=== PATIENT | female | born 1960 | race Caucasian/White ===

== ENCOUNTER 2016-06-10 10:08 | Outpatient (CLI) | payer OTHER ==
[2016-06-10 11:05] LABS: #Basophils 0.1 thou/uL (0.0-0.2); #Eosinphils 0.1 thou/uL (0.0-0.7); #Lymphocytes 2.3 thou/uL (1.20-3.40); #Monocytes 0.5 thou/uL (0.11-0.59); #Neutrophils 3.9 thou/uL (1.40-6.50); %Eosinophils 1.3 % (0.0-10.0); %Monocytes 7.5 % (0.0-10.0); Hematocrit 45.8 % (36.0-47.0); Mean Platelet Volume 9.4 fL (7.4-10.4); Red Blood Cell (RBC) Count 4.83 mill/uL (4.20-5.40); White Blood Cell (WBC) Count 6.8 thou/uL (4.8-10.8)
[2016-06-10 11:24] LABS: ALT (SGPT) 24 U/L (0-55); AST (SGOT) 24 U/L (5-34); Alkaline Phosphatase 77 U/L (40-150); Anion Gap 12 mmol/L (10-20); BUN (Urea Nitrogen) 21 mg/dL (9.8-20.1); Bilirubin, Total 0.7 mg/dL (0.2-1.2); Calc. Creatinine Clearance 0 mL/min (70-130); Calcium 9.6 mg/dL (7.8-10.44); Carbon Dioxide 25 mmol/L (22-29); Chloride 108 mmol/L (98-107); Estimated GFR-MDRD Greater than 90; Globulin 3.2 g/dL (2.4-3.5); LDL Cholesterol, Calculated 182 mg/dL; Protein, Total 7.4 g/dL (6.0-8.3)
== END 2016-06-10 10:09 | disposition home or self-care (01) ==
LOC: BURLAB 10:08
PROVIDERS: ATTEND Family Medicine
DX: E78.5 Hyperlipidemia, unspecified (principal); I10 Essential (primary) hypertension
CPT/HCPCS: 36415; 80050; 80061

== ENCOUNTER 2018-04-22 01:22 | Emergency (ER) | payer SELFPAY ==
[2018-04-22] MEDS ORDERED: Guaifenesin DM 100-10/5 ML UDCUP ONE (02:02)
--- NOTE | 2018-04-22 08:37 | RAD ---
PA AND LATERAL CHEST XRAY: DATE: 04/22/2018. HISTORY: Cough. COMPARISON: None available. FINDINGS: Cardiac silhouette and pulmonary vasculature are within normal limits. Calcified granuloma overlies the right upper lobe. There are linear densities seen in a retrocardiac region which may be related to vascular structures, but atelectasis or developing area of pneumonitis could not be entirely exclu ded. However, no corresponding abnormality is seen on the lateral projection suggesting this is prob ably related to vascular structures. Thoracic aorta is tortuous and ectatic. Degenerative changes a re seen in the spine. IMPRESSION: No acute cardiopulmonary process. POS: [facility]
== END 2018-04-22 02:07 | disposition home or self-care (01) ==
LOC: BURERS 01:22
DX: J06.9 Acute upper respiratory infection, unspecified (principal); E78.5 Hyperlipidemia, unspecified; I10 Essential (primary) hypertension; F32.9 Major depressive disorder, single episode, unspecified; F17.210 Nicotine dependence, cigarettes, uncomplicated; Z79.899 Other long term (current) drug therapy
CPT/HCPCS: 71046